=== PATIENT | female | born 1995 | race Caucasian/White ===

== ENCOUNTER 2018-07-26 14:44 | Observation (INO) ==
[2018-07-26] MEDS ORDERED: ONDANSETRON INJ 2 MG/ML 2 ML VIAL IV STA (14:55)
[2018-07-26] MEDS ORDERED: SODIUM CHLORIDE 0.9% 1000ML 1,000 ML IV SCH (15:00)
[2018-07-26 15:19] LABS: Basophils # (auto) 0.01 K/uL (0-0.2); Basophils % (auto) 0.1 %; Eosinophils # (auto) 0.01 K/uL (0-0.5); Eosinophils % (auto) 0.1 %; Hematocrit (blood only) 42.8 % (37-47); Hemoglobin 15.1 g/dL (12.0-16.0); Immature Granulocytes # (auto) 0.03 K/uL (0.00-0.02); Immature Granulocytes % (auto) 0.3 %; Lymphocytes # (auto) 2.54 K/uL (1.2-3.4); Lymphocytes % (auto) 25.6 %; Mean Corpuscular Hgb Conc 35.3 g/dL (32-36); Mean Corpuscular Volume 92.2 fL (80-100); Mean Platelet Volume 10.1 fL (7.4-10.4); Monocytes # (auto) 1.16 K/uL (0.11-0.59); Monocytes % (auto) 11.7 %; Neutrophils # (auto) 6.19 K/uL (1.4-6.5); Neutrophils % (auto) 62.2 %; Platelet Count 286 K/uL (130-400); RDW Coefficient of Variation 13.6 % (11.5-14.5); RDW Standard Deviation 45.9 fL (36.4-46.3); Red Blood Count 4.64 M/uL (4.2-5.4); White Blood Count 9.94 K/uL (4.8-10.8)
--- NOTE | 2018-07-26 15:29 | XRay Report ---
XR abdomen 2V w PA chest CLINICAL HISTORY: vomiting nausea. COMPARISON STUDY: No previous studies for comparison. FINDINGS: The soft tissues, psoas shadows, renal outlines and intestinal gas pattern appear normal. T here is no evidence for bowel obstruction. There is no evidence for free intraperitoneal air. No abno rmal abdominal calcifications are seen. A frontal view of the chest was performed and is unremarkable . Mild nonobstructive ileus IMPRESSION: 1. Negative chest. 2. Mild nonobstructive ileus. The above report was generated using voice recognition software. It may contain grammatical, syntax or spelling errors. Electronically signed by: Juan Carlos Dawn M.D. 07/26/2018 3:27 PM
[2018-07-26] MEDS ORDERED: PROMETHAZINE 6.25 MG/50.25 ML BAG IV STA (15:31)
[2018-07-26 15:45] LABS: Alanine Aminotransferase 22 U/L (12-78); Albumin Globulin Ratio 0.9 (0.9-2); Albumin Level 4.3 gm/dl (3.4-5.0); Alkaline Phosphatase 72 U/L (45-117); BUN Creatinine Ratio 9.5 (10-20); Bilirubin,Total 0.8 mg/dl (0.2-1); Blood Urea Nitrogen 7 mg/dl (7-18); Calcium 9.5 mg/dl (8.5-10.1); Carbon Dioxide 27 mmol/L (21-32); Chloride 100 mmol/L (98-107); Creatinine Clr Calc Pharmacy 110.3 ml/min; Est GFR (African American) 139.7; Est GFR (Non-African American) 120.6; Globulin 4.8 gm/dl (2.5-4.0); Glucose 100 mg/dl (70-99); Sodium 135 mmol/L (136-145); Total Protein 9.1 gm/dl (6.4-8.2); Troponin I < 0.015 ng/ml (0-0.045)
[2018-07-26 16:20] LABS: Potassium 2.9 mmol/L (3.5-5.1)
[2018-07-26 16:48] LABS: INR 1.1 (0.9-1.1); Partial Thromboplastin Ratio 1.1; Partial Thromboplastin Time 29.5 Seconds (21.0-31.0); Prothrombin Time 11.4 Seconds (9.0-12.0)
[2018-07-26] MEDS ORDERED: POTASSIUM CHLORIDE / WTR 10 MEQ/100 ML PLCT IV ONE ×2 (16:52→21:30)
[2018-07-26] MEDS ORDERED: MoRPHine SULFATE 4 MG/ML 1 ML CARP\\VIAL IV STA (17:25)
[2018-07-26] MEDS ORDERED: FAMOTIDINE 20MG/5ML IV PUSH IV STA (17:25)
--- NOTE | 2018-07-26 17:48 | Emergency Department Note ---
Entered by Amber Palomino acting as a scribe for Tanmay Ac DO History of Present Illness General Chief complaint: Syncope Stated complaint: EXCESSIVE VOMITING, NAUSEA, FAINTING Time Seen by Provider: 07/26/18 14:50 Source: patient History of Present Illness Provider complaint: Syncope Onset (ago): day(s) 3 Location: head (syncope ) and abdomen Pain Consistency: + other (episode ) Maximum Pain Intensity: 9 Quality: + constant Associated symptoms: + fever/chills (chills), + nausea/vomiting (vomiting ), + syncope and + other (Positive:burning sensation in chest, trouble breathing Negative: leg swelling ) The patient is a 22 year old female who presents to the Emergency Room with complaints of an episode of syncope that started 3 days ago. The patient reports she has not been able to stop vomiting for 3 days and has been fainting. She notes she has not been able to sleep because she is in so much pain. The patient states her pain is worsened when she tries to drink fluids. She notes the vomiting started first then the pain came after. The patient reports she has a burning sensation in her chest. She notes she has trouble breathing and has c hills. The patient states her last menstrual period was 07/06. She notes she was here last month for a similar episode and was given morphine and felt better. The patient denies tobacco use. She states she occasionally drinks alcohol. The patient states she stopped using marijuana because they told her it might be the cause of her symptoms. She notes she has history of pneumonia. The patient denies leg swelling. Home Medications Home Medications Medication Instructions Recorded Confirmed Type ondansetron 4 mg PO Q6H PRN #12 tab 07/25/18 07/26/18 Rx Allergies Allergy/AdvReac Type Severity Reaction Status Date / Time aspirin AdvReac Unknown Nose Bleed Verified 07/26/18 15:16 Past Med/Surg History Medical History Hyperemesis (Acute) Gastritis (Acute) No significant past medical history Social History Preferred Language: Frisian Feels Safe at Home: Yes Smoking Status: Never smoker Review of Systems See HPI for pertinent positives & negatives. and A total of 10 systems reviewed and were otherwise negative Physical Exam Vital Signs Vital Signs - 24 hr 07/26/18 14:47 07/26/18 15:28 07/26/18 17:03 Temperature 36.7 C Temperature Source Oral Sepsis Recent Fever Within 48 Hours No Sepsis Action Taken by Nursing No Action Required Pulse Rate 67 Pulse Rate [Apical] 71 Respiratory Rate 20 16 Blood Pressure 156/109 H Blood Pressure [Right Arm] 138/94 Blood Pressure Mean 124 Blood Pressure Mean [Right Arm] 108 Blood Pressure Position Sitting Pulse Oximetry 98 98 99 Oxygen Delivery Method Room Air Room Air GENERAL: Patient is awake, alert, and in no acute distress.Patient is resting comfortably and showing no signs of anxiety EYES: The conjunctivae are clear. The pupils are round and reactive. EARS, NOSE, MOUTH AND THROAT: The nose is without any evidence of any deformity. Mucous membranes are moist.Tongue is midline NECK: The neck is nontender and supple. RESPIRATORY: Normal respiratory effort is noted. There is no evidence of wheezing rhonchi or rales to auscultation. CARDIOVASCULAR: Regular rate and rhythm noted. There no murmurs rubs or gallops normal S1 normal S2 GASTROINTESTINAL: The abdomen is soft and non-distended. Right upper quadrant tenderness to palpation. No gaurding or rigidity. BACK: No midline tenderness or or step-off noted range of motion in flexion extension as well as rotation no signs of muscle spasm noted. MUSCULOSKELETAL/EXTREMITIES: There is no evidence of gross deformity. Full range of motion is noted in the hips and shoulders. SKIN: There is no obvious evidence of any rash. There are no petechiae, pallor or cyanosis noted. NEUROLOGIC: Patient is awake alert and oriented x3. Strength is symmetric. Patellar reflexes are 2+ bilaterally. Course 1453:The patient was evaluated in room A2, and a complete history and physical examination were performed. 1719: I checked on the patient. 1730: I reviewed the patient's case with Dr. Kelsey. He will evaluate the patient for further management. Administered Medications Discontinued Medications Famotidine (Pepcid 20mg Iv Push) 20 mg IV ONE STA Stop: 07/26/18 17:26 Last Admin: 07/26/18 17:37 Dose: 20 mg Documented by: [id number] Sodium Chloride (Nss 1000ml) 1,000 mls @ 999 mls/hr IV .Q1H1M [facility] Stop: 07/26/18 16:00 Last Infusion: 07/26/18 17:02 Dose: 0 mls/hr Documented by: [id number] Admin: 07/26/18 15:38 Dose: 999 mls/hr Documented by: [id number] Promethazine HCl (Phenergan) 6.25 mg in 50.25 mls @ 201 mls/hr IV NOW STA Stop: 07/26/18 15:45 Last Infusion: 07/26/18 16:14 Dose: 0 mls/hr Documented by: [id number] Admin: 07/26/18 15:38 Dose: 201 mls/hr Documented by: [id number] Potassium Chloride (K Rodrigue / Wtr) 10 meq in 100 mls @ 100 mls/hr IV ONE ONE Stop: 07/26/18 17:51 Last Admin: 07/26/18 16:56 Dose: 100 mls/hr Documented by: [id number] Morphine Sulfate (Morphine Sulfate) 4 mg IV NOW STA Stop: 07/26/18 17:26 Last Admin: 07/26/18 17:37 Dose: 4 mg Documented by: [id number] Ondansetron HCl (Zofran) 4 mg IV NOW STA Stop: 07/26/18 14:56 Last Admin: 07/26/18 15:38 Dose: 4 mg Documented by: [id number] Medical Decision Making Differential Diagnosis Differential diagnosis: Etiologies such as biliary colic, cholecystitis, hepatitis, perihepatitis, pancreatitis, cardiac disease, pancreatitis, gastritis, peptic ulcer disease, appendicitis, ovarian cyst, ovarian torsion, ectopic , pelvic inflammatory disease, cystitis, diverticulitis, mesenteric ischemia, inflammatory bowel disease, ileus, bowel obstruction, aortic pathology, shingles, as well as others were considered. Medical Records Attestation: I reviewed the patient's medical records. Home Medications Current Medication List: was personally reviewed by me Laboratory Data Attestation: I reviewed the patient's lab results. Result diagrams: 07/26/18 14:59 07/26/18 15:57 Lab Results 07/26/18 07/26/18 07/26/18 Range/Units 14:59 14:59 14:59 WBC 9.94 (4.8-10.8) K/uL RBC 4.64 (4.2-5.4) M/uL Hgb 15.1 (12.0-16.0) g/dL Hct 42.8 (37-47) % MCV 92.2 (80-100) fL MCH 32.5 (25-34) pg MCHC 35.3 (32-36) g/dL RDW Std Deviation 45.9 (36.4-46.3) fL RDW Coeff of Pedrito 13.6 (11.5-14.5) % Plt Count 286 (130-400) K/uL MPV 10.1 (7.4-10.4) fL Immature Gran % (Auto) 0.3 % Neut % (Auto) 62.2 % Lymph % (Auto) 25.6 % Pershing % (Auto) 11.7 % Eos % (Auto) 0.1 % Baso % (Auto) 0.1 % Immature Gran # (Auto) 0.03 H (0.00-0.02) K/uL Neut # (Auto) 6.19 (1.4-6.5) K/uL Lymph # (Auto) 2.54 (1.2-3.4) K/uL Pershing # (Auto) 1.16 H (0.11-0.59) K/uL Eos # (Auto) 0.01 (0-0.5) K/uL Baso # (Auto) 0.01 (0-0.2) K/uL PT Cancelled INR Cancelled APTT Cancelled PTT Ratio Cancelled Sodium 135 L (136-145) mmol/L Potassium (3.5-5.1) mmol/L Chloride 100 (98-107) mmol/L Carbon Dioxide 27 (21-32) mmol/L Anion Gap 8.0 (3-11) BUN 7 (7-18) mg/dl Creatinine 0.72 (0.6-1.2) mg/dl Est Cr Clr Drug Dosing 110.3 ml/min Est GFR ( Amer) 139.7 Est GFR (Non-Af Amer) 120.6 BUN/Creatinine Ratio 9.5 L (10-20) Glucose 100 H (70-99) mg/dl Calcium 9.5 (8.5-10.1) mg/dl Total Bilirubin 0.8 (0.2-1) mg/dl AST (15-37) U/L ALT 22 (12-78) U/L Alkaline Phosphatase 72 (45-117) U/L Troponin I < 0.015 (0-0.045) ng/ml Total Protein 9.1 H (6.4-8.2) gm/dl Albumin 4.3 (3.4-5.0) gm/dl Globulin 4.8 H (2.5-4.0) gm/dl Albumin/Globulin Ratio 0.9 (0.9-2) Lipase 864 H (73-393) U/L 07/26/18 07/26/18 Range/Units 15:57 16:11 WBC (4.8-10.8) K/uL RBC (4.2-5.4) M/uL Hgb (12.0-16.0) g/dL Hct (37-47) % MCV (80-100) fL MCH (25-34) pg MCHC (32-36) g/dL RDW Std Deviation (36.4-46.3) fL RDW Coeff of Pedrito (11.5-14.5) % Plt Count (130-400) K/uL MPV (7.4-10.4) fL Immature Gran % (Auto) % Neut % (Auto) % Lymph % (Auto) % Pershing % (Auto) % Eos % (Auto) % Baso % (Auto) % Immature Gran # (Auto) (0.00-0.02) K/uL Neut # (Auto) (1.4-6.5) K/uL Lymph # (Auto) (1.2-3.4) K/uL Pershing # (Auto) (0.11-0.59) K/uL Eos # (Auto) (0-0.5) K/uL Baso # (Auto) (0-0.2) K/uL PT 11.4 INR 1.1 APTT 29.5 PTT Ratio 1.1 Sodium (136-145) mmol/L Potassium 2.9 L D (3.5-5.1) mmol/L Chloride (98-107) mmol/L Carbon Dioxide (21-32) mmol/L Anion Gap (3-11) BUN (7-18) mg/dl Creatinine (0.6-1.2) mg/dl Est Cr Clr Drug Dosing ml/min Est GFR ( Amer) Est GFR (Non-Af Amer) BUN/Creatinine Ratio (10-20) Glucose (70-99) mg/dl Calcium (8.5-10.1) mg/dl Total Bilirubin (0.2-1) mg/dl AST 11 L (15-37) U/L ALT (12-78) U/L Alkaline Phosphatase (45-117) U/L Troponin I (0-0.045) ng/ml Total Protein (6.4-8.2) gm/dl Albumin (3.4-5.0) gm/dl Globulin (2.5-4.0) gm/dl Albumin/Globulin Ratio (0.9-2) Lipase (73-393) U/L Imaging Data Radiologist's Impression: Radiology results as stated below per my review and the radiologist's interpretation: XR abdomen 2V w PA chest CLINICAL HISTORY: vomiting nausea. COMPARISON STUDY: No previous studies for comparison. FINDINGS: The soft tissues, psoas shadows, renal outlines and intestinal gas pattern appear normal. There is no evidence for bowel obstruction. There is no evidence for free intraperitoneal air. No abnormal abdominal calcifications are seen. A frontal view of the chest was performed and is unremarkable. Mild nonobs tructive ileus IMPRESSION: 1. Negative chest. 2. Mild nonobstructive ileus. The above report was generated using voice recognition software. It may contain grammatical, syntax or spelling errors. Electronically signed by: Juan Carlos Dawn M.D. 07/26/2018 3:27 PM ECG Data Attestation: I personally reviewed and interpreted this ECG as follows: Indication: syncope Rate (beats per minute): 52 Rhythm: sinus bradycardia Findings: + other (Prominent U wave); no ST depression, no ST elevation and no ectopy Comparison ECG Date: no prior available Blood Pressure Blood Pressure Findings: Elevated blood pressure Blood Pressure Disposition: further management by hospitalist [facility] Narrative The patient is a 22-year-old female who presented to the emergency department for abdominal pain nausea and vomiting. The patient was seen over the weekend for similar complaints. At that time her right upper quadrant ultrasound showed no acute disease. Her laboratory studies were reviewed. The patient was treate d with IV fluids IV pain medication and IV antiemetics. She also was treated with IV Pepcid. She was reevaluated multiple times but continues to have significant nausea and vomiting. Her lipase appears to be elevated compared to previous and her potassium is low. I did replace her potassium. I discussed the patient's condition with the on-call [facility] hospitalist. They have agreed to evaluate the patient in the emergency department for further management and disposition. Impression & Plan Syncope, Nausea & vomiting, Pancreatitis, Hypokalemia Discharge Plan Visit Data Chief Complaint: Syncope Stated Complaint: EXCESSIVE VOMITING, NAUSEA, FAINTING ED Provider: Tanmay Ac Discharge Problem: Syncope, Nausea & vomiting, Pancreatitis, Hypokalemia Patient Disposition: Being Evaluated by Hospitalist Forms Stand Alone Forms: Important Visit Information Prescriptions Prescriptions: No Action ondansetron 4 mg tablet,disintegrating 4 mg PO Q6H PRN (Reason: nausea and vomiting) Qty: 12 RF: 0 Referrals Referrals: PCP,NO [Primary Care Provider] - Discharge Problem: Syncope Qualifiers: Syncope type: unspecified Qualified Code(s): R55 - Syncope and collapse Nausea & vomiting Qualifiers: Vomiting type: unspecified The scribe's documentation has been prepared under my direction and personally reviewed by me in its entirety. I confirm that the note above accurately reflects all work, treatment, procedures, and medical decision making performed by me.
--- NOTE | 2018-07-26 18:09 | History & Physical Report ---
Date of Service July 26, 2018 Assessment & Plan (1) Nausea & vomiting: Admit obs med surg - lipase was 864, LFTs wnl - abdominal Xray with mild non obstructive ileus - abd US 07/25 showed small amount of gallbladder sludge but was otherwise normal - NSS 40 K @ 100 mls/hr - Zofran, protonix bid, GI cocktail - patient does smoke marijuana a few times a week, last was a week ago, doubtful it is contributory at this point - if patient does not improve with these measures, may need to have GI consulted for EGD to assess for ulcer (2) Hypokalemia: Potassium 2.9 Given potassium x 10 mEq in ED NSS 40K @ 100 ml/hr, potassium rider 10 mEq x2 IV - total of 70 mEq for this evening (3) DVT prophylaxis: SCDs History of Present Illness Primary Care Provider: NO PCP Ms. Escalera presented to the ED on Thursday for vomiting with bloody emesis. She went home and felt ok for a few hours but then the pain in her upper abdomen returned. It is an aching, stabbing, and at times burning pain. She has been vomiting once an hour. She has not been able to eat or drink since Thursday. No one else has been sick. No headache, some mild neck soreness which she attributes to sleeping on it wrong, able to move head through ROM without difficulty. No sob, no chest pain, no bm since Thursday. The last time she smoked marijuana was last Thursday (a week ago). She smokes marijuana a couple times per week. Last alcohol intake was Thursday with a couple glasses of wine. She began having this pain and vomiting on Thursday at 1 am. 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 Non smoker, occasionally vapes, no other substance use. Lives alone in the dorms. Allergies Allergy/AdvReac Type Severity Reaction Status Date / Time aspirin AdvReac Unknown Nose Bleed Verified 07/26/18 15:16 Home Medications Home Medications Medication Instructions Recorded Confirmed Type ondansetron 4 mg PO Q6H PRN #12 tab 07/25/18 07/26/18 Rx Past Med/Surg History Medical History Hyperemesis (Acute) Gastritis (Acute) No significant past medical history Social History Preferred Language: Irish Communication Ability: Effective General Production Manager Required: No Beliefs That Will Affect Care: None Current Living Situation: Other Current Living Situation Comment: [employer] student Feels Safe at Home: Yes Safety Concerns: Feels Safe At This Time Smoking Status: Never smoker Hx Alcohol Use: No Hx Substance Use: No Review of Systems All systems reviewed & are unremarkable except as noted in HPI & below Physical Exam Vital Signs (Past 24 Hours): Last Vital Signs Temp 36.7 C 07/26/18 14:47 Pulse 71 07/26/18 17:03 Resp 16 07/26/18 17:03 BP 138/94 07/26/18 17:03 Pulse Ox 99 07/26/18 17:03 Physical Exam: General: no distress Eyes: normal inspection, PERLL Neck: neck supple Respiratory: chest non tender, clear to auscultation, normal breath sounds, no respiratory distress, no accessory muscle use Cardiac: regular rate and rhythm, no rub or gallop, no murmur, no edema, no jvd GI/: active bowel sounds,upper medial abdominal pain, soft, non distended Extremities: normal range of motion, normal strength, non tender Neuro/Psych: drowsy and oriented x 3, normal mood and affect, Skin: normal color, dry Results & Data Laboratory Results Abnormal lab results 07/26/18 07/26/18 07/26/18 Range/Units 14:59 14:59 15:57 Immature Gran # (Auto) 0.03 H (0.00-0.02) K/uL [place] # (Auto) 1.16 H (0.11-0.59) K/uL Sodium 135 L (136-145) mmol/L Potassium 2.9 L D (3.5-5.1) mmol/L BUN/Creatinine Ratio 9.5 L (10-20) Glucose 100 H (70-99) mg/dl AST 11 L (15-37) U/L Total Protein 9.1 H (6.4-8.2) gm/dl Globulin 4.8 H (2.5-4.0) gm/dl Lipase 864 H (73-393) U/L Code Status & VTE Plan Code Status full VTE Prophylaxis Plan VTE Prophylaxis will be ordered: Yes Supervising Physician Co-Signing Physician Notes AUTOMATED ACCESS SYSTEMS TECHNICIAN Physician Supervision Note: I discussed with Yoanna Grossman NP and agree with findings and plan as documented in the note. Any exceptions or clarifications are listed here: None Patient was seen and examined in emergency department her exam is most consistent with epigastric discomfort possibly gastritis or peptic ulcer disease. There is confounding lipase which is moderately elevated in the ER. Patient will be admitted for gastrointestinal rest and workup. If symptoms persist on 07/[address] scan may be ordered Documented By: Low Tobar (1) Nausea & vomiting Vomiting type: unspecified
[2018-07-26] MEDS ORDERED: POTASSIUM ACETATE 10 MEQ in 0.9 % SODIUM CHLORIDE 100 ML IV SCH (20:21)
[2018-07-26] MEDS: MoRPHine SULFATE 2 MG/ML CARP IV PRN (22:02)
[2018-07-26] MEDS: PANTOprazole 40 MG TAB PO SCH (22:03)
[2018-07-26] MEDS: POTASSIUM CHLORIDE 40 MEQ in SODIUM CHLORIDE 0.9% 1000ML 1,000 ML IV SCH (22:03)
[2018-07-26 22:10] LABS: Appearance Urine Clear (Clear); Bilirubin Urine Negative (Negative); Blood Urine Negative (Negative); Color Urine Yellow; Glucose Urine UA Negative (Negative); Ketones Urine 2+ (Negative); Leukocyte Esterase Urine Negative (Negative); Nitrite Urine Negative (Negative); Protein Urine Negative (Negative); Specific Gravity Urine 1.013 (1.000-1.030); Urobilinogen Urine Negative (Negative)
[2018-07-26 22:32] LABS: Amphetamines+Metham, Urine Neg (Neg); Barbiturates, Urine Neg (Neg); Benzodiazepine, Urine Neg (Neg); Cocaine, Urine Neg (Neg); MDMA (Ecstacy), Urine Neg (Neg); Methadone, Urine Neg (Neg); Opiate, Urine Pos (Neg); Phencyclidine, Urine Neg (Neg)
[2018-07-26] MEDS ORDERED: ACETAMINOPHEN 1,000 MG/100 ML VIAL IV STA (23:34)
[2018-07-26] MEDS ORDERED: PROMETHAZINE HCL 12.5 MG in SODIUM CHLORIDE 0.9% 50 ML IV SCH (23:45)
[2018-07-26] MEDS: ALUMINUM/MAGNESIUM SUSP 72 ML, LIDOCAINE HCL VISCOUS 2% 24 ML, BARCODE IDENTIFIER 1 EA PO PRN (23:58)
[2018-07-27] MEDS: ALUMINUM/MAGNESIUM SUSP 72 ML, LIDOCAINE HCL VISCOUS 2% 24 ML, BARCODE IDENTIFIER 1 EA PO PRN ×2 (05:08→17:05)
[2018-07-27] MEDS: MoRPHine SULFATE 2 MG/ML CARP IV PRN ×3 (07:18→23:08)
[2018-07-27] MEDS: PROMETHAZINE HCL 12.5 MG in SODIUM CHLORIDE 0.9% 50 ML IV PRN ×3 (07:29→22:50)
[2018-07-27 08:17] LABS: Hematocrit (blood only) 41.5 % (37-47); Hemoglobin 14.3 g/dL (12.0-16.0); Mean Corpuscular Hgb Conc 34.5 g/dL (32-36); Mean Corpuscular Volume 93.5 fL (80-100); Mean Platelet Volume 10.2 fL (7.4-10.4); Platelet Count 267 K/uL (130-400); RDW Coefficient of Variation 13.6 % (11.5-14.5); RDW Standard Deviation 46.6 fL (36.4-46.3); Red Blood Count 4.44 M/uL (4.2-5.4); White Blood Count 8.32 K/uL (4.8-10.8)
[2018-07-27] MEDS: PANTOprazole 40 MG TAB PO SCH ×2 (08:40→20:27)
[2018-07-27] MEDS: POTASSIUM CHLORIDE 40 MEQ in SODIUM CHLORIDE 0.9% 1000ML 1,000 ML IV SCH (08:41)
[2018-07-27] MEDS: ACETAMINOPHEN 65 ML IV SCH ×2 (08:42→16:07)
[2018-07-27 09:13] LABS: Albumin Globulin Ratio 0.8 (0.9-2); Albumin Level 3.6 gm/dl (3.4-5.0); Calcium 8.9 mg/dl (8.5-10.1); Creatinine Clr Calc Pharmacy 124.5 ml/min; Est GFR (African American) 148.9; Est GFR (Non-African American) 128.5; Globulin 4.3 gm/dl (2.5-4.0); Potassium 3.4 mmol/L (3.5-5.1); Total Protein 7.9 gm/dl (6.4-8.2)
[2018-07-27] MEDS ORDERED: POTASSIUM CHLORIDE 20 MEQ TABCR PO ONE (09:45)
[2018-07-27] MEDS: NSS + 20MEQ KCL 20 MEQ/1,000 ML BAG IV SCH (13:40)
--- NOTE | 2018-07-27 13:40 | Hospitalist Progress Note ---
Date of Service July 27, 2018 Assessment & Plan (1) Nausea & vomiting: - lipase was 864 on admission and trended down, LFTs wnl - abdominal Xray with mild non obstructive ileus - abd US 07/25 showed small amount of gallbladder sludge but was otherwise normal - IVF - Zofran, protonix bid, GI cocktail - patient does smoke marijuana a few times a week, last was a week ago, she does say that she was taking frequent hot showers on Thursday. Marijuana hyperemesis may be contributing to her symptoms which can persists for some time after last use - tolerating small amount of clears - if able to keep fluids down and no further vomiting, will discharge tomorrow with close follow up (2) Hypokalemia: Potassium 2.9 on admission, 3.4 today - replaced (3) DVT prophylaxis: SCDs (4) Syncope: Patient does report having a syncopal event while in a hot shower yesterday. Likely secondary to dehydration, electrolyte imbalance and possible vasodilitation from the warm water. She did hit her head but "not hard". No focal findings on neuro exam. Continue to monitor with telemetry. Patient denies any headaches. Subjective Hanaa is feeling somewhat better today. She was able to eat a bit of popsicle, no further vomiting and abdominal pain is better. No headache Review of Systems All systems reviewed & are unremarkable except as noted in HPI & below Physical Exam Vital Signs (Past 24 Hours): Last Vital Signs Temp 37.1 C 07/27/18 12:00 Pulse 67 07/27/18 12:00 Resp 16 07/27/18 12:00 BP 149/97 H 07/27/18 12:00 Pulse Ox 98 07/27/18 12:00 Physical Exam: General: no distress Eyes: normal inspection, PERLL Respiratory: chest non tender, clear to auscultation, normal breath sounds, no respiratory distress, no accessory muscle use Cardiac: regular rate and rhythm, no rub or gallop, no murmur, no edema, no jvd GI/: active bowel sounds, no abd pain or tenderness, soft, non distended Extremities: normal range of motion, normal strength, non tender Neuro/Psych: alert and oriented x 3, normal mood and affect, CN II - XII intact Skin: normal color, dry Results & Data Laboratory Results Abnormal lab results 07/26/18 07/26/18 07/26/18 Range/Units 14:59 14:59 15:57 RDW Std Deviation (36.4-46.3) fL Immature Gran # (Auto) 0.03 H (0.00-0.02) K/uL [place]ia # (Auto) 1.16 H (0.11-0.59) K/uL Sodium 135 L (136-145) mmol/L Potassium 2.9 L D (3.5-5.1) mmol/L BUN (7-18) mg/dl BUN/Creatinine Ratio 9.5 L (10-20) Glucose 100 H (70-99) mg/dl AST 11 L (15-37) U/L Total Protein 9.1 H (6.4-8.2) gm/dl Globulin 4.8 H (2.5-4.0) gm/dl Albumin/Globulin Ratio (0.9-2) Lipase 864 H (73-393) U/L Urine Ketones (Negative) Urine Opiates Screen (Neg) U Marijuana (THC) Screen (Neg) 07/26/18 07/26/18 07/27/18 Range/Units Unknown Unknown 07:53 RDW Std Deviation 46.6 H (36.4-46.3) fL Immature Gran # (Auto) (0.00-0.02) K/uL Cassia # (Auto) (0.11-0.59) K/uL Sodium (136-145) mmol/L Potassium (3.5-5.1) mmol/L BUN (7-18) mg/dl BUN/Creatinine Ratio (10-20) Glucose (70-99) mg/dl AST (15-37) U/L Total Protein (6.4-8.2) gm/dl Globulin (2.5-4.0) gm/dl Albumin/Globulin Ratio (0.9-2) Lipase (73-393) U/L Urine Ketones 2+ H (Negative) Urine Opiates Screen Pos H (Neg) U Marijuana (THC) Screen Pos H (Neg) 07/27/18 Range/Units 07:53 RDW Std Deviation (36.4-46.3) fL Immature Gran # (Auto) (0.00-0.02) K/uL [place] # (Auto) (0.11-0.59) K/uL Sodium (136-145) mmol/L Potassium 3.4 L D (3.5-5.1) mmol/L BUN 5 L (7-18) mg/dl BUN/Creatinine Ratio 7.0 L (10-20) Glucose (70-99) mg/dl AST 14 L (15-37) U/L Total Protein (6.4-8.2) gm/dl Globulin 4.3 H (2.5-4.0) gm/dl Albumin/Globulin Ratio 0.8 L (0.9-2) Lipase (73-393) U/L Urine Ketones (Negative) Urine Opiates Screen (Neg) U Marijuana (THC) Screen (Neg) (1) Nausea & vomiting Vomiting type: unspecified
[2018-07-27] MEDS: ONDANSETRON INJ 2 MG/ML 2 ML VIAL IV PRN (16:47)
[2018-07-28] MEDS: ACETAMINOPHEN 65 ML IV SCH ×3 (00:34→15:25)
[2018-07-28] MEDS: NSS + 20MEQ KCL 20 MEQ/1,000 ML BAG IV SCH ×2 (00:34→11:00)
[2018-07-28] MEDS: PROMETHAZINE HCL 12.5 MG in SODIUM CHLORIDE 0.9% 50 ML IV PRN (04:07)
[2018-07-28] MEDS: ONDANSETRON INJ 2 MG/ML 2 ML VIAL IV PRN ×2 (06:01→11:00)
[2018-07-28 07:37] LABS: Hematocrit (blood only) 45.4 % (37-47); Hemoglobin 15.8 g/dL (12.0-16.0); Mean Corpuscular Hgb Conc 34.8 g/dL (32-36); Mean Corpuscular Volume 91.3 fL (80-100); Mean Platelet Volume 10.2 fL (7.4-10.4); Platelet Count 263 K/uL (130-400); RDW Coefficient of Variation 13.4 % (11.5-14.5); RDW Standard Deviation 44.3 fL (36.4-46.3); Red Blood Count 4.97 M/uL (4.2-5.4); White Blood Count 9.19 K/uL (4.8-10.8)
[2018-07-28 08:08] LABS: BUN Creatinine Ratio 9.7 (10-20); Calcium 9.2 mg/dl (8.5-10.1); Creatinine Clr Calc Pharmacy 123.7 ml/min; Est GFR (African American) 148.9; Est GFR (Non-African American) 128.5
[2018-07-28] MEDS: PANTOprazole 40 MG TAB PO SCH (10:02)
[2018-07-28] MEDS: ALUMINUM/MAGNESIUM SUSP 72 ML, LIDOCAINE HCL VISCOUS 2% 24 ML, BARCODE IDENTIFIER 1 EA PO SCH ×2 (10:03→15:26)
[2018-07-28] MEDS: MoRPHine SULFATE 2 MG/ML CARP IV PRN (11:06)
[2018-07-28] MEDS: SUCRALFATE 1 GM/10 ML UDC PO SCH ×2 (12:50→16:20)
[2018-07-28] MEDS ORDERED: LORazepam 0.25 MG/0.5 ML VIAL IV PRN (13:07)
--- NOTE | 2018-07-28 14:45 | Hospitalist Progress Note ---
Date of Service July 28, 2018 Assessment & Plan (1) Nausea & vomiting: - lipase was 864 on admission and trended down, LFTs wnl - abdominal Xray with mild non obstructive ileus - abd US 07/25 showed small amount of gallbladder sludge but was otherwise normal - IVF dc'd as patient taking in more po - Zofran, protonix bid, GI cocktail, sucralfate - patient does smoke marijuana a few times a week, last was a week ago, she does say that she was taking frequent hot showers on Thursday. Marijuana hyperemesis may be contributing to her symptoms which can persists for some time after last use - tolerating increased po intake this afternoon. Encouraged to start walking the halls (2) Hypokalemia: Potassium 2.9 on admission, replaced and resolved (3) DVT prophylaxis: SCDs (4) Syncope: Patient does report having a syncopal event while in a hot shower yesterday. Likely secondary to dehydration, electrolyte imbalance and possible vasodilitation from the warm water. She did hit her head but "not hard". No focal findings on neuro exam. Continue to monitor with telemetry. Patient denies any headaches. (5) Hypertension: Blood pressures as high as 150s/112. Asymptomatic. May be secondary to nausea. Patient should follow up with her pcp after discharge. Subjective Ms. Escalera was quite nauseas this morning but this afternoon is able to eat and drink and says she is not having abdominal pain. Her blood pressures have been elevated but asymptomatic. No events on monitor Review of Systems Review of Systems: All systems reviewed & are unremarkable except as noted in HPI & below Physical Exam Physical Exam: General: no distress Eyes: normal inspection, PERLL Respiratory: chest non tender, clear to auscultation, normal breath sounds, no respiratory distress, no accessory muscle use Cardiac: regular rate and rhythm, no rub or gallop, no murmur, no edema, no jvd GI/: active bowel sounds, no abd pain or tenderness, soft, non distended Extremities: normal range of motion, normal strength, non tender Neuro/Psych: alert and oriented x 3, normal mood and affect Skin: normal color, dry Results & Data Vital Signs (Past 12 Hours) Vital Signs Temp Pulse Resp BP Pulse Ox 07/28/18 11:15 37.3 C 85 18 152/112 H 99 07/28/18 07:19 36.8 C 89 18 150/97 H 95 07/28/18 03:00 36.8 C 91 H 18 145/106 H 98 (1) Nausea & vomiting Vomiting type: unspecified
--- NOTE | 2018-07-28 17:25 | Discharge Summary ---
Date of Service July 28, 2018 Admission HPI Per Admitting Provider Ms. Escalera presented to the ED on Thursday for vomiting with bloody emesis. She went home and felt ok for a few hours but then the pain in her upper abdomen returned. It is an aching, stabbing, and at times burning pain. She has been vomiting once an hour. She has not been able to eat or drink since Thursday. No one else has been sick. No headache, some mild neck soreness which she attributes to sleeping on it wrong, able to move head through ROM without difficulty. No sob, no chest pain, no bm since Thursday. The last time she smoked marijuana was last Thursday (a week ago). She smokes marijuana a couple times per week. Last alcohol intake was Thursday with a couple glasses of wine. She began having this pain and vomiting on Thursday at 1 am. Pmhx: no significant past medical history Family history: father has diabetes Social: student at [employer] in [employer]. Non smoker, occasionally vapes, no other substance use. Lives alone in the dorms. Principal Diagnosis Vomiting, abdominal pain Discharge Exam Constitutional WD/WN, vitals as above Respiratory normal respiratory effort, lungs clear to auscultation Cardiovascular RRR, no murmur, no edema Gastrointestinal (Abdomen) Inspection/Auscultation: abdomen normal to inspection and normal bowel sounds; abdomen not distended Percussion/Palpation: abdomen nontender Musculoskeletal no cyanosis or clubbing, extremities motor strength 5/5 Skin no rashes, warm and dry Neurologic moves all extremities and awake Psychiatric A+Ox3, euthymic affect Discharge Data Allergies Allergy/AdvReac Type Severity Reaction Status Date / Time aspirin AdvReac Mild Nose Bleed Verified 07/30/18 12:53 Consultations 07/26/18 17:25 ED Decision to Admit Stat Hospital Course (1) Nausea & vomiting: - lipase was 864 on admission and trended down, LFTs wnl - abdominal Xray with mild non obstructive ileus - abd US 07/25 showed small amount of gallbladder sludge but was otherwise normal - IVF dc'd as patient taking in more po - Zofran, protonix bid, GI cocktail, sucralfate - will continue protonix and sucralfate for home. - patient does smoke marijuana a few times a week, last was a week ago, she does say that she was taking frequent hot showers on Thursday. Marijuana hyperemesis may be contributing to her symptoms which can persists for some time after last use. We did discuss this and she verbalized understanding that she should stop using marijuana - tolerating increased po intake this afternoon. - EGD outpatient with Dr. Heath on Thursday - patient does mention that her period started today and she had a similar vomiting episode before her last period. Previous to that she was always nauseas around her the time her period started. I encouraged her to discuss this with her pcp when she sees them next week. She may benefit from some hormonal control. (2) Hypokalemia: Potassium 2.9 on admission, replaced and resolved (3) DVT prophylaxis: SCDs (4) Syncope: Patient does report having a syncopal event while in a hot shower day of admission. Likely secondary to dehydration, electrolyte imbalance and possible vasodilitation from the warm water. She did hit her head but "not hard". No focal findings on neuro exam. Continue to monitor with telemetry. Patient denies any headaches. (5) Hypertension: Blood pressures as high as 150s/1teens. Asymptomatic, no apparent end organ damage. May be secondary to nausea as blood pressures from May were lower. Patient should follow up with her pcp after discharge. No family history of hypertension Total Time Total Time Spent Total Time Spent (In Minutes): greater than 30 minutes Discharge Plan Discharge Items Patient Disposition: Home - Self-Care Reason For Visit: VOMITING,ABDOMINAL PAIN Discharge Diagnosis: vomiting, abdominal pain Discharge Goals: Decrease discomfort and Improve disease control Activity: Resume your previous activity Non-emergency contact: Primary Care Provider Call non-emergency contact if: you have any medication questions, your symptoms worsen, your pain is not controlled, your pain is worsening and you have a fever Follow-up/Referrals: [facility] [Primary Care Provider] - Diet: Regular Diet Comment: advance your diet gradually as tolerated Addtl Provider Instructions: Dr. Heath will schedule your EGD for Thursday at 12:30. Please call his office at [phone] for further instructions on your endoscopy. You should be nothing by mouth after midnight the night before your procedure. You should also see [facility] next week. Be sure to have your blood pressure checked and discuss your elevated pressure here during your stay. If you develop any symptoms such as severe or persistent headache, sob, chest pain, palpitations, or blurred vision you should call your doctor right away or return to the emergency department as these could be signs of dangerously elevated blood pressure. Discuss with your provider the timing of vomiting problems coinciding with your menstrual cycle as this may be a contributing factor. Continue taking sucralfate every four hours as needed for the next week. Take pantoprazole twice per day for the next month. Avoid NSAIDs (non steroidal anti inflammatory drugs) like ibuprofen and Aleve as they are irritating to the stomach. You can use Tylenol for pain, no more than 3000 mg per 24 hours. Prescriptions: New sucralfate 100 mg/mL Suspension 1 ml PO QID 7 Days Qty: 28 RF: 0 pantoprazole 40 mg Tablet,Delayed Release (Dr/Ec) 40 mg PO BID Qty: 30 RF: 0 Continued ondansetron 4 mg tablet,disintegrating 4 mg PO Q6H PRN (Reason: nausea and vomiting) Qty: 12 RF: 0 No Action acetaminophen [Tylenol Extra Strength] 500 mg Tablet 1 - 2 tab PO Q6H PRN (Reason: Pain) RF: 0 Stand-Alone Forms: [facility] Discharge Orders: Discharge Order (Routine); Ordered 07/28/18 Ordered By: Yoanna Grossman Admission Data Admit Date/Time: 07/26/18 18:29 Attending Provider: Low Tobar Admit Provider: Low Tobar Primary Care Provider: [facility] Other Providers: Dom Kelsey Service: Medical Other Interventions: Discharge Summary Assessment (RN) Last Done: 07/28/18 18:16 DC Date/Time DO NOT enter until pt leaves facility: 07/28/18 19:13
--- NOTE | 2018-07-29 01:58 | Consultation Report ---
DATE OF CONSULTATION: 07/28/2018 GASTROENTEROLOGY CONSULT THE PATIENT'S AGE: 22. SEX: Female. ATTENDING PHYSICIAN: Dr. Tobar. CONSULTING PHYSICIAN: Dr. Heath. REASON FOR CONSULTATION: Nausea. HISTORY OF PRESENT ILLNESS: Anton Escalera is a 22-year-old female who presented to the Department of Emergency Medicine initially on 07/25/2018 secondary to vomiting with multiple episodes of vomiting in the previous 24 hours. She did admit to alcohol as well as marijuana use prior to her onset of symptoms. She previously had been to the ER approximately 1 month prior and had similar symptoms and was diagnosed with a "GI bug." Initially in the Department of Emergency Medicine, she was found to have a slightly elevated white blood cell count of 14.22. Her lipase was 91 and her liver panel was unremarkable. She states that she stayed in the ER approximately 8 hours and was given antiemetic therapy and was discharged to home. She states that she did return to the Department of Emergency Medicine on 07/26/2018 with worsening symptoms of excessive vomiting as well as nausea and fainting. She described abdominal pain which limited her ability to sleep. She described pain as a 9/10 in intensity in the abdomen with associated vomiting. She was noted at that time to have elevated lipase level of 864. A tox screen in the ER was positive for marijuana. Her white blood cell count had decreased to 9.94 from her prior level. She did have an abdominal ultrasound, which showed a small amount of gallbladder sludge but was otherwise normal and an abdominal x-ray which showed a mild nonobstructive ileus. She was subsequently admitted. She was started on Protonix by mouth as well as Carafate, antiemetics and morphine for pain. She continued to complain of nausea throughout her hospitalization which prompted the consult to Gastroenterology. At the time that I saw her today, she states that she did eat successfully today for the first time. She states her abdominal pain has improved significantly. She does still complain of a 2/10 midepigastric abdominal pain, nonradiating without exacerbating factors. She does state that it is alleviated with the Protonix as well as with morphine therapy. She denies any hematemesis, melena, hematochezia. She further denies any jaundice, acholic stools, dark urine, or pruritus. She states that she has not had any further nausea or vomiting. She denies any weight loss. In regards to her marijuana use, she states that she does smoke marijuana a few times weekly and does admit to taking frequent hot showers, which does make her symptoms improve as well. She denied any further complaints. PAST MEDICAL HISTORY: Significant for gastritis. PAST SURGICAL HISTORY: None. ALLERGIES: ASPIRIN. MEDICATIONS AT PRESENT: Tylenol 650 mg IV q. 8 hours, Protonix 40 mg p.o. b.i.d., Carafate 1 gram p.o. q.i.d., Maalox 15 mL p.o. q. 6, morphine 2 mg IV q. 4 p.r.n. pain, Zofran 4 mg IV q. 4 p.r.n. nausea, Phenergan 12.5 mg IV q. 4 p.r.n. nausea, Ativan 0.25 mg every 4 hours as needed. SOCIAL HISTORY: She is a student at [employer], studying [employer]. She is from [facility]. She denies any tobacco. She does admit to smoking marijuana multiple times weekly and does drink alcohol socially up to 8 drinks per week. FAMILY HISTORY: Negative for GI malignancy or inflammatory bowel disease. REVIEW OF SYSTEMS: Negative x12 system review other than pertinent positives listed in the HPI. PHYSICAL EXAMINATION: VITAL SIGNS: Temp of 98.2, pulse 91, respirations 18, blood pressure 145/101, pulse ox 99% on room air. GENERAL: She is awake, cooperative, no acute distress. HEAD: Normocephalic, atraumatic. EYES: Pupils equal, round. Extraocular muscles are intact. ENT: External evaluation of ears and nose are normal. Oropharynx is clear. NECK: Soft, supple, no JVD or lymphadenopathy. CHEST: Clear to auscultation bilaterally. CARDIOVASCULAR SYSTEM: Regular rate and rhythm. ABDOMEN: Soft, nontender, nondistended. Positive bowel sounds. There is no hepatosplenomegaly or stigmata of chronic liver disease. EXTREMITIES: No clubbing, cyanosis, or edema. SKIN: Soft, pink. Good turgor. LABORATORY STUDIES AND RADIOGRAPHIC STUDIES: Reviewed in the HPI. IMPRESSION: A 22-year-old female who presented with abdominal pain, nausea and vomiting. PLAN: Currently, the patient's nausea and vomiting has resolved. Her abdominal pain has improved significantly. The differential diagnosis for this patient's symptoms include 1. Viral gastroenteritis. 2. Acid peptic disorder of the gastrointestinal tract. 3. Marijuana hyperemesis syndrome. 4. Gastroparesis. RECOMMENDATIONS: At present, I would recommend continuing her on Protonix 40 mg p.o. b.i.d. I would also recommend that she be on Carafate 1 gram p.o. q.i.d. before meals and at bedtime for 10 days. I did offer to perform an upper endoscopy on her tomorrow, though the patient states that she would like to be discharged tonight as she has school activities and does not wish to stay any longer. She ate today and therefore it is not amenable to perform an upper endoscopy today. I did contact scheduling and got her an appointment for an upper endoscopy on Thursday and she is to report to the main desk at the hospital at 12:30 to check in on Thursday afternoon. The patient was understanding of this plan. I also discussed this with nursing team and asked them to pass this on to the primary team so that it could be included in her discharge instructions. I will make further recommendations following the above noted testing. Once again, thanks for allowing me to participate in the care of this patient. If you have any further questions, please do not hesitate in contacting me.
[2018-07-29 12:14] LABS: Hydrocodone Urine NEGATIVE NG/ML (CUTOFF=50); Hydromor Urine NEGATIVE NG/ML (CUTOFF=50); Marijuana Quant, GCMS Urine 959 NG/ML (CUTOFF=5); Morphine Urine 2590 NG/ML (CUTOFF=50); Norhydrocodone Conf Ur NEGATIVE NG/ML (CUTOFF=50); Noroxycodone Urine NEGATIVE NG/ML (CUTOFF=50); Oxycodone Urine NEGATIVE NG/ML (CUTOFF=50)
== END 2018-07-28 19:13 | disposition home or self-care (01) ==
LOC: 2W 14:44 → ED 14:44 → 2W 20:09